=== PATIENT | female | born 1985 | race Caucasian/White ===

== ENCOUNTER → 2018-09-21 | Outpatient (CLI) | payer BC ==
--- NOTE | 2018-09-21 17:34 | US ---
EXAM DESCRIPTION: Breast,Right: Ultrasound CLINICAL HISTORY: 33 yearsFemaleABNORMAL MAMMO. Nodule upper inner quadrant right breast. COMPARISON: Bilateral screening digital breast tomosynthesis 09/01/2018. TECHNIQUE: Transcutaneous scanning of the right breast utilizing luna-scale mode Scanning performed by the vocational counselor and Dr. Larsen. FINDINGS: Ultrasound: Scanning of the upper posterior third of the right breast. Emphasis on the 12:00-1:00 location, 7 cm from the nipple. Mostly fibroglandular elements. Minimal fatty echotexture anterior. No dominant solid mass or distinct cyst. No parenchymal edema or large calcifications. No overlying skin changes. IMPRESSION: BI-RADS CATEGORY: 1 - NEGATIVE FOLLOW UP: Return to routine digital bilateral screening, at age 42. Any additional breast imaging recommended for this condition should be based upon additional clinical or laboratory findings. Written communication explaining the findings and follow-up, will be mailed to the patient and referring health care provider. The FINDINGS and the FOLLOW-UP plan were reviewed in person with the patient after the examination. According to the [employer], yearly mammograms are recommended starting at age 40 and continuing as long as a woman is in good health. Any breast change noted on a breast self-exam should be reported promptly to the patient's healthcare provider. Breast MRI is recommended for women with an approximately 20-25% or greater lifetime risk of breast cancer, including women with a strong family history of breast or ovarian cancer and women who have been treated for Hodgkin's disease. A negative breast imaging report should not delay tissue diagnosis in patients with significant clinical history or physical findings. Extremely dense breast tissue limits the sensitivity of digital mammography. Electronically signed by: Rober Larsen MD 09/21/2018 5:32 PM CDT
== END ==
LOC: US 13:22
PROVIDERS: ATTEND Nurse Practitioner Family
DX: R92.8 Other abnormal and inconclusive findings on diagnostic imaging of breast (principal)